=== PATIENT | female | born 1950 | race Caucasian/White ===

== ENCOUNTER → 2021-03-27 | Outpatient (CLI) | payer MEDICARE, MEDICAID | LOC: COL.RAD 13:24 | DX: G31.9 Degenerative disease of nervous system, unspecified (principal); E11.42 Type 2 diabetes mellitus with diabetic polyneuropathy; I67.82 Cerebral ischemia; R42 Dizziness and giddiness ==

== ENCOUNTER 2021-11-16 14:53 | Outpatient (RCR) | payer MEDICARE, MEDICAID ==
[~2021-11-16 14:53] MED LIST: ANTIVERT 25MG25 MG PO
== END 2021-11-24 | disposition still patient (30) ==
LOC: WSPT
DX: H81.10 Benign paroxysmal vertigo, unspecified ear (principal)

== ENCOUNTER 2021-12-21 14:15 | Outpatient (RCR) | payer MEDICARE, MEDICAID | END 2021-12-24 | disposition still patient (30) | LOC: WSPT | DX: H81.10 Benign paroxysmal vertigo, unspecified ear (principal) ==

== ENCOUNTER 2022-09-03 10:56 | Inpatient (IN) | payer MEDICARE, MEDICAID ==
[~2022-09-03 10:56] MED LIST changes: +*Hypoglycemia Clinic; +ASPI325T6 PO; +BENADRYL25 M2 PO; +COLACE 100100 MG/CAP PO; +LANTUS100 U/ML SQ; +LEVEMIR FLEX100 U/ML SQ; +LIPITOR 40MG TA40 MG PO; +LYRICA 75MG CAP75 MG PO; +MELATIN 3 MG-11 TAB PO; +MIRALAX PA17 GM/Dose PO; +NOVLOG SQ; +PROTONIX 40MG T40 MG PO; +ROXICODONE 55 MG/TAB PO; +SYNTHROID 0.10.15 MG PO; +TRULICITY4.5 MG/0.5 SQ; +TYLENOL 500MG500 MG PO; +ZESTRIL 20MG TA20 MG PO
[2022-09-03 12:00] VITALS: BP 104/41; PULSE 102; TEMP 99.5
--- NOTE | 2022-09-03 12:30 | NUR ---
PATIENT WAS ADMITED TO [facility] FOR WEAKNESS AND LETHARGIC. PATIENT HAD A TEMP OF 102.4 AND THEN DROP TO 101.8. HEART RATE HAS BEEN IN THE 100S BUT THE HIGHEST WAS 119. SINUS TACHY PER EKG. TELE WAS IN PLACE. PATIENT HAS A PIC LINE IN PLACE ON R AC. PATIENT WAS CLAMMY BUT VITALS HAS BEEN STABLE. UNABLE TO GET A UA AT THIS TIME. PATIENT ATE ABUOT 50% OF HER MEALS FOR LUNCH.
[2022-09-03 12:31] VITALS: BP 104/41; PULSE 102; TEMP 99.5
[2022-09-03 16:14] VITALS: BP 131/88
[2022-09-03 16:59] LABS: COLLECTION METHOD CLEAN CATCH
[2022-09-03 17:03] LABS: URINE APPEARANCE Clear (CLEAR/HAZY); URINE BLOOD Negative (NEGATIVE); URINE COLOR Yellow (YELLOW); URINE GLUCOSE 1+ (NEGATIVE); URINE KETONE TRACE (NEGATIVE); URINE NITRATE Negative (NEGATIVE); URINE PROTEIN(semi-quant) Negative (NEGATIVE); URINE UROBILINOGEN 0.2 E.U/dL (0.2-1.0)
[2022-09-03 17:05] LABS: MUCOUS Present (NOT PRESENT); SQUAMOUS EPITHELIAL None Seen /hpf (0-10); URINE BACTERIA None Seen /hpf (NONE SEEN); URINE RBC 0-2 /hpf (0-2)
--- NOTE | 2022-09-03 17:35 | NUR ---
UA AND BLOOD CULTURE WAS DONE ORDER. UA CAME BACK NORMAL EVEN THOUGH HER URINE WAS DARK YELLOW AND SLIGHTLY CONCENTRATED. . BLOOD CULTURE STILL PENDING. MAG WAS DONE AT 440PM.PATIENT ONLY HAVE FLUIDS RUNNING. PATIENT HAS BEEN IN AND OUT ALL DAY. ATE 50% AT DINNER TIME
--- NOTE | 2022-09-03 18:17 | NUR ---
SPOUSE WOULD LIKE TO BE CALL IF ANY THING HAPPEN AT NIGHT TIME. NUMBER TO REACH HIM IS [phone] (MARIAM)
[2022-09-03 20:24] VITALS: BP 104/45; PULSE 100; TEMP 98.2
[2022-09-03 23:25] VITALS: BP 111/52; PULSE 98; TEMP 97.6
--- NOTE | 2022-09-04 00:34 | NUR ---
Patient assessed around 2019. Patient alert, talking on phone. Denies having pain and discomfort. IV fluids running per orders. Voices no questions, needs, or concerns at time of assessment. Around 2119, patient having emesis, complaining of nausea. Call placed to DEMAR Beck. New order for Phenergan, and given per orders. Voices no further questions, needs, or concerns at this time. In bed with call light within reach.
[2022-09-04 04:20] VITALS: BP 135/54; PULSE 97; TEMP 98.5
--- NOTE | 2022-09-04 06:21 | NUR ---
Patient transferred to bedside commode with two assist with use of walker. Had bowel movement and able to urinate. Voices no questions, needs, or concerns at this time. In bed with call light within reach. Bed alarm on.
[2022-09-04 06:38] LABS: BASO % 0.5 % (0.0-2.0); EOS % 0.4 % (0.0-4.0); GRAN # 6.1 K/mm3 (1.4-6.5); GRAN % 76.6 % (42.2-75.2); LYMPH # 1.3 K/mm3 (1.2-3.4); LYMPH % 16.8 % (20.0-51.0); MEAN CELL VOLUME 84 fl (80.0-100.0); MEAN CORPUSCULAR HGB CONC 31 g/dl (33.0-37.0); MEAN PLATELET VOLUME 10.9 fl (7.4-10.4); MONO # 0.4 K/mm3 (0.1-0.6); MONO % 5.1 % (1.7-9.3); PLATELET COUNT 211 K/mm3 (130-400); REDCELL DISTRIBUTION WIDTH-CV 17.2 % (11.5-14.5)
[2022-09-04 06:42] LABS: HEMATOCRIT 30.9 % (37.0-47.0); HEMOGLOBIN 9.6 g/dl (12.5-16.0); MEAN CORPUSCULAR HEMOGLOBIN 26 pg (27-31)
[2022-09-04 06:54] LABS: CALCIUM 7.8 mg/dL (8.4-10.2); CREATININE, serum 1.27 mg/dL (0.57-1.11); MAGNESIUM 2.2 mg/dL (1.6-2.6); POTASSIUM 3.9 mmol/L (3.5-4.5)
--- NOTE | 2022-09-04 07:14 | NUR ---
BEDSIDE REPORT DONE ORDER. PATIENT RESTING IN BED.
[2022-09-04 07:28] VITALS: BP 116/44; PULSE 89; TEMP 99.3
--- NOTE | 2022-09-04 10:14 | NUR ---
ASSESSMENT DONE ORDER. PATIENT ALERT AND ORIENTED X 3 WITH SOME CONFUSION WHEN WAKING UP. PATIENT WEAK STANDING AND NEED 2 MAX ASSISTANCE. LUNG CLEAR BUT HAVE A SMALL COUGH. BOWEL SOUND ACTIVE. WITH A BOWEL MOVEMENT TODAY
[2022-09-04 11:58] VITALS: BP 105/47; PULSE 87; TEMP 98
--- NOTE | 2022-09-04 14:57 | NUR ---
SW met with patient to complete to complete intake. Patient states that she lives in [facility] with her Hector Norman [phone]. Patient provides that she utilizes an electric wheelchair, is independent with ADL's, and does not utilize HH at this time. PCP is Jerry, and pharmacy is [facility]. DPOA/HC is spouse. Awaiting PT recommomendation DC plan: Patient plans to return home
[2022-09-04 16:14] VITALS: BP 119/57; PULSE 82; TEMP 98.1
--- NOTE | 2022-09-04 16:39 | NUR ---
SW reviewed PT recommendation of IPR. SW called IPR staff Chaparrita to inform of PT recommendation for IPR. SW will continue to follow.
--- NOTE | 2022-09-04 18:12 | NUR ---
LOOSE STOOL X 3 NOTIFIED DOCTOR ACOSTA REGARDING IT. HE ORDER C-DIFF AND GI PANEL
--- NOTE | 2022-09-04 18:13 | NUR ---
PATIENT COMPLAIN ON PAIN ON STUMP AREA. SPOKE WITH DOCTOR YAMILET AND HE ORDER NORCO 5/325MG MG Q 8 HOUR PRN. SENT ORDER TO PHARMACY. ONCE I RECEIVED THE ORDER AND APPROVAL , I TOOK THE MEDICATION OUT AND PATIENT WAS SLEEPING. WAITING ANOTHER 20 MIN AND PATIENT STATED HER PAIN SUBSITED AND DOES NOT NEED IT RIGHT NOW. PATIENT STATED ONCE WE REPOSITION HER KAROLINE WRAP THE PAIN WENT AWAY. EXPLAIN THAT SHE HAS THE MEDICATION IF SHE NEED IT. PATIENT UNDERSTOOD.
--- NOTE | 2022-09-04 18:22 | NUR ---
PATIENT INFORM THAT HE FEEL SICK AFTER EATING HER FOOD. BASIN AT BEDSIDE. NO VOMIT AT THIS TIME. EXPLAIN ABOUT BRAT DIET FOR NOW AND TO EAT SLOW. EDUCATION TO DRINK WATER. PATIENT UNDERSTOOD.
[2022-09-04 20:30] VITALS: BP 130/56; PULSE 79; TEMP 98.1
[2022-09-04 22:14] LABS: CLOSTRIDIUM DIFF A/B NEG
[2022-09-04 23:12] VITALS: BP 125/59; PULSE 77; TEMP 98
--- NOTE | 2022-09-05 01:42 | NUR ---
Patient care, medication administration and nursing documentation occurred during a Daylight Savings Time Change.
[2022-09-05 03:37] VITALS: BP 125/61; PULSE 77; TEMP 97.8
--- NOTE | 2022-09-05 06:20 | NUR ---
OVERNIGHT PATIENTS VITAL SIGNS REMAINED WITHIN NORMAL LIMITS, PTS STOOL SAMPLE RESULT WAS POSITIVE FOR NOROVIRUS, PT WAS PLACED ON CONTACT PRECAUTIONS. PT WAS CLEANED OF INCONTINCE EPISODE X3 OF STOOL, PT VOIDED A SMALL AMOUNT ONCE OVERNIGHT. PT ASKED TO URINATE AT 0620 PT WAS ABLE TO URINATE 900 MEASURED AND THEN THE REST SPILLED
[2022-09-05 06:40] LABS: BASO % 0.4 % (0.0-2.0); EOS % 0.4 % (0.0-4.0); GRAN # 5.7 K/mm3 (1.4-6.5); GRAN % 74.1 % (42.2-75.2); HEMATOCRIT 28.1 % (37.0-47.0); HEMOGLOBIN 8.8 g/dl (12.5-16.0); LYMPH # 1.4 K/mm3 (1.2-3.4); LYMPH % 17.8 % (20.0-51.0); MEAN CELL VOLUME 82 fl (80.0-100.0); MEAN CORPUSCULAR HEMOGLOBIN 26 pg (27-31); MEAN CORPUSCULAR HGB CONC 31 g/dl (33.0-37.0); MEAN PLATELET VOLUME 10.2 fl (7.4-10.4); MONO # 0.5 K/mm3 (0.1-0.6); MONO % 6.9 % (1.7-9.3); PLATELET COUNT 189 K/mm3 (130-400); RED BLOOD COUNT 3.41 M/mm3 (4.10-5.30); REDCELL DISTRIBUTION WIDTH-CV 17.3 % (11.5-14.5)
[2022-09-05 07:03] LABS: CALCIUM 7.6 mg/dL (8.4-10.2); CREATININE, serum 0.77 mg/dL (0.57-1.11); POTASSIUM 3.6 mmol/L (3.5-4.5)
--- NOTE | 2022-09-05 07:15 | NUR ---
BEDSIDE REPORT DONE ORDER. PATINET RESTING IN BED.
[2022-09-05 07:16] VITALS: BP 129/65; PULSE 74; TEMP 97.8
--- NOTE | 2022-09-05 10:12 | NUR ---
ASSESSMENT DONE ORDER. PATINET ALERT AND ORIENTED TODAY. VERY HAPPY AND MOVING AROUND. STILL HAVING BOWELMOVEMENT X2 ALREADY ON MY SHIFT. URINATED ON HER OWN WITH THE HELP OF SIT TO STAND AND COMMOND. NO PAIN MEDICATION NEEDED. LUNG CLEAR, BOWEL SOUND ACTIVE WITH MUSHY,DIARRHEA BOWELS(BROWN)
[2022-09-05 11:47] VITALS: BP 128/55; PULSE 75; TEMP 97.9
--- NOTE | 2022-09-05 15:14 | NUR ---
PATIENT HAD ABOUT 5 LOOSE STOOL TODAY. THE LAST TWO HAS BEEN LESS THAN THE FIRST 3. EDUCATED PATIENT TO DRINK PLENTY OF WATER AND EAT WELL. EDUCATED ABOUT WASHING HANDS AND USING GLOVES. MARIAM UNDERSTOOD.
[2022-09-05 16:34] VITALS: BP 117/54; PULSE 88; TEMP 97.9
[2022-09-05 19:25] VITALS: BP 136/58; PULSE 78; TEMP 97.7
[2022-09-05 22:38] LABS: HEMATOCRIT 26.4 % (37.0-47.0); HEMOGLOBIN 8.5 g/dl (12.5-16.0)
[2022-09-05 23:41] VITALS: BP 136/51; PULSE 73; TEMP 98.1
[2022-09-06] VITALS (7 sets, daily range): BP systolic 133–173; BP diastolic 53–95; PULSE 69–93; TEMP 97.6–98.3
--- NOTE | 2022-09-06 07:01 | NUR ---
Shift rpeort received from retail shift leader RN. Pt awake and resting supine in bed reading on her phone. Rt. OLIVE dsg is CDI. IVF infusing to RUE PICC w/out difficulty. Per night RN, no blood return from PICC. Voice mail left for VS nurse. Pt denies pain/discomfort. Denies other needs. Call light is in her reach.
--- NOTE | 2022-09-06 08:20 | NUR ---
Pt ate approx 50% of her breakfast this morning independently. Accucheck was taken after she finished her breakfast. FSBS 98 - insulin was held. She continues to deny pain/discomfort. She remains on contact precautions for norovirus. No loose stools, n/v, or abd. pain. She denies additional needs. Call light is in her reach. Bed alarm is on.
--- NOTE | 2022-09-06 12:47 | NUR ---
Plastic Eye Technician spoke with Lissa, IPR Director who advised she is working on resubmitting for insurance authorization. Discharge Plan: Return to IPR
--- NOTE | 2022-09-06 17:19 | NUR ---
AIVS to see pt this afternoon to assess RUE PICC line. Unable to obtain blood return. XR revealed that PICC is in correct place. Recevied order for Cath-flow - 2ml administered in each lumen at 1635. Upon recheck 30 min later, still unable to obtain blood return. Will reassess in 30 minutes.
--- NOTE | 2022-09-06 19:00 | NUR ---
supervisor insecticide came to assist with PICC line at approx 1800. Darren was able to obtain blood return from red and purple ports. Both ports flushed with 20mL flush. Lab on unit for lab draw. Nurse only able to obtain approx 3 mL blood from purple port and unable to obtain blood from red port. Both ports flush w/out difficulty. Attempted x 2 to call hospitalist for further advice.
--- NOTE | 2022-09-06 19:11 | NUR ---
Hospitalist KATHIA notified. Okay to reorder cath-flow and repeat dose. Awaiting delivery from pharmacy.
--- NOTE | 2022-09-06 20:31 | NUR ---
Patient assessed at this time, head to toe assessment done, see shift assessment, clarified with Adriana the Pa regarding the cathflow and said give the 2mg each lumen, double checked it as well with the house painter, after 30minutes of giving it both lumens have good blood return, with stump dressing to right knee, denies pain or discomfort, denies further need at this time, call light and personal items within reach, will continue to monitor.
[2022-09-07 03:37] VITALS: BP 145/62; PULSE 70; TEMP 97.7
--- NOTE | 2022-09-07 06:23 | NUR ---
Patient had an uneventful night, denies further needs, will report off to dayshift nurse.
[2022-09-07 06:43] LABS: MEAN CELL VOLUME 83 fl (80.0-100.0); MEAN CORPUSCULAR HGB CONC 31 g/dl (33.0-37.0); MEAN PLATELET VOLUME 10.7 fl (7.4-10.4); PLATELET COUNT 237 K/mm3 (130-400); RED BLOOD COUNT 3.15 M/mm3 (4.10-5.30); REDCELL DISTRIBUTION WIDTH-CV 17.3 % (11.5-14.5)
[2022-09-07 06:45] LABS: HEMOGLOBIN 8.1 g/dl (12.5-16.0); MEAN CORPUSCULAR HEMOGLOBIN 26 pg (27-31)
--- NOTE | 2022-09-07 07:01 | NUR ---
Shift report received from night warehouse manager RN. Pt awake and lying supine in bed watching tv. She denies pain/discomfort. Purewick is on - linens clean/dry. Rt. BKA dressing is CDI. Other needs denied. Call light in her reach. Bed alarm is on.
[2022-09-07 07:10] LABS: CALCIUM 7.7 mg/dL (8.4-10.2); CREATININE, serum 0.73 mg/dL (0.57-1.11); MAGNESIUM 1.5 mg/dL (1.6-2.6); POTASSIUM 3.2 mmol/L (3.5-4.5)
[2022-09-07 07:16] VITALS: BP 174/73; PULSE 77; TEMP 97.6
--- NOTE | 2022-09-07 07:23 | NUR ---
FSBS 73 mg/dL. Pt is not symptomatic of hypoglycemia at this time. 4 oz orange juice given along with Glucerna. Breakfast ordered. Will continue to monitor.
--- NOTE | 2022-09-07 08:38 | NUR ---
FSBS was rechecked and noted to be 83 mg/dL. Pt is waiting for her breakfast to be delivered. AM scheduled insulin held. RUE PICC line flushing well in both ports with noted blood return from both ports. Pt denies pain/discomfort. Denies other needs. Call light in her reach. Bed alarm is on.
[2022-09-07] MEDS ORDERED: ASPI325T6 PO (09:19)
[2022-09-07] MEDS ORDERED: MIRALAX PA17 GM/Dose PO (09:20)
[2022-09-07] MEDS ORDERED: COLACE 100100 MG/CAP PO (09:20)
[2022-09-07] MEDS ORDERED: TYLENOL 500MG500 MG PO (09:20)
[2022-09-07] MEDS ORDERED: LEVEMIR FLEX100 U/ML SQ (09:25)
[2022-09-07] MEDS ORDERED: NOVOLOG FLEX100 U/ML SQ ×2 (09:26)
[2022-09-07 11:20] VITALS: BP 147/63; PULSE 71; TEMP 97.7
--- NOTE | 2022-09-07 12:16 | NUR ---
2nd dose of PO potassium given. Report given to MERNA Alarcon.
--- NOTE | 2022-09-07 12:17 | NUR ---
TAKING OVER PT CARE AT THIS TIME. REPORT FROM TAY BAUMAN.
--- NOTE | 2022-09-07 15:14 | NUR ---
Transport Nurse contacted Patient on Patient phone to discuss discharge planning from [facility] Surgical Unit. Patient is pending insurance auth in order to return to IPR once discharged. Patient reported that she endorses that plan and intends to return to IPR when authorized. Patient had no concerns for SW at this time.
[2022-09-07 16:00] VITALS: BP 180/74; PULSE 79; TEMP 97.6
[2022-09-07 20:11] VITALS: BP 166/79; PULSE 80; TEMP 97.6
[2022-09-07 23:46] VITALS: BP 156/76; PULSE 71; TEMP 97.9
[2022-09-08 03:52] VITALS: BP 189/81; PULSE 77; TEMP 98.4
--- NOTE | 2022-09-08 06:14 | NUR ---
pt's BP elevated this am @ 0400, 189/81, per doctor's note, lisinopril on hold until discharge, which should be today.
[2022-09-08 07:18] VITALS: BP 153/73; PULSE 76; TEMP 97.7
--- NOTE | 2022-09-08 11:23 | NUR ---
Patient sitting up in chair. Family at bedside. Flight Test Supervisor has assisted her to bedside commode. She remains on contact isolation. AM insulin held due to sugar being only 75. Tylenol prn for pain. right lower extremity dressing intact. Picc rue. Will monitor
[2022-09-08 11:31] VITALS: BP 163/68; PULSE 78; TEMP 97.7
--- NOTE | 2022-09-08 13:50 | NUR ---
Patient continue to sit up in chair without needs at this time
--- NOTE | 2022-09-08 15:18 | NUR ---
MAUREEN GUADALUPE TO RESUME PATIENT CARES. REPORT GIVEN
[2022-09-08 15:35] VITALS: BP 152/62; PULSE 79; TEMP 97.7
--- NOTE | 2022-09-08 18:19 | NUR ---
Patient sitting up in bed watching TV, just finished eating dinner. A&Ox4. VSS. IV CDI. Incision CDI. Denies pain and discomfort. Contact precautions in place. No further needs expressed. Call light within reach
[2022-09-08 20:12] VITALS: BP 144/66; PULSE 73; TEMP 97.9
[2022-09-08 23:17] VITALS: BP 140/65; PULSE 69; TEMP 97.9
[2022-09-09 03:45] VITALS: BP 147/63; PULSE 73; TEMP 98.7
[2022-09-09 04:10] VITALS: BP 182/85; PULSE 73; TEMP 98.3
[2022-09-09 04:56] VITALS: BP 175/78
[2022-09-09 07:41] VITALS: BP 159/62; PULSE 77; TEMP 98.6
== END 2022-09-09 10:36 | DRG 565 ==
LOC: SURG 10:56
PROVIDERS: Physician Assistant; ADMIT Student in an Organized Health Care Education/Training Program
DX: T87.89 Other complications of amputation stump (principal); E87.1 Hypo-osmolality and hyponatremia; R65.10 Systemic inflammatory response syndrome (SIRS) of non-infectious origin without acute organ dysfunction; M86.9 Osteomyelitis, unspecified; N17.9 Acute kidney failure, unspecified; I10 Essential (primary) hypertension; K52.89 Other specified noninfective gastroenteritis and colitis; E11.42 Type 2 diabetes mellitus with diabetic polyneuropathy; E11.65 Type 2 diabetes mellitus with hyperglycemia; E11.69 Type 2 diabetes mellitus with other specified complication; E03.9 Hypothyroidism, unspecified; E87.5 Hyperkalemia; E83.42 Hypomagnesemia; K21.9 Gastro-esophageal reflux disease without esophagitis; K59.00 Constipation, unspecified; G47.00 Insomnia, unspecified; Z79.4 Long term (current) use of insulin; Z89.422 Acquired absence of other left toe(s); Z90.710 Acquired absence of both cervix and uterus; Z88.2 Allergy status to sulfonamides; Z88.1 Allergy status to other antibiotic agents
CPT/HCPCS: J0360; J0692; J1815; J2550; J2997; J3475; J7030; J7120

== ENCOUNTER 2022-09-08 15:48 | Inpatient (IN) | payer MEDICARE, MEDICAID ==
[~2022-09-08] VITALS: Ht 175.3 cm; Wt 103.5 kg
[~2022-09-08 15:48] MED LIST changes: +NOVOLOG FLEX100 U/ML SQ
--- NOTE | 2022-09-09 14:42 | NUR ---
Has lack of transportation kept you from medical appts, meetings, work, or from getting things needed for daily living? NO How often do you feel lonely or isolated from those around you? OFTEN Over the past 5 days, how much of the time has pain made it hard for you to sleep? FREQUENTLY Over the past 5 days, how often have you limited your participation in therapy due to pain? FREQUENTLY Over the past 5 days, how often have you limited your day-to-day activities because of pain? FREQUENTLY Have you had 2 or more falls in the past year or any fall with an injury? YES Did you have major surgery during the 100 days prior to admission? YES
[2022-09-09 17:22] VITALS: BP 138/61; PULSE 80; TEMP 98.7
--- NOTE | 2022-09-09 20:45 | NUR ---
PT SITTING ON SIDE OF BED. A&OX4. PLEASANT AND COOPERTIVE. RT PICC LINE FLUSHES WELL. C/O RT HIP PAIN. LEVEL 8. SEE MAR FOR NORCO GIVEN. ACCUCHECK 224- SEE MAR FOR SSI GIVEN. PT DENIES ANY LOOSE STOOLS TODAY. CONTINUES IN ISOLATION FOR NOROVIRUS. CALL LIGHT IN REACH. BED ALARM SET.
[2022-09-10 06:22] VITALS: BP 168/70; PULSE 76; TEMP 97.6
--- NOTE | 2022-09-10 07:29 | NUR ---
Pt Ox4, up to BSC with 1A and walker. Denies pain.
--- NOTE | 2022-09-10 11:40 | NUR ---
Rec'd notification from [facility] that per ID guidelines, contact precautions may be d/c. Pt has had no loose or liquid stool x 24 hours.
--- NOTE | 2022-09-10 14:33 | NUR ---
Contact Lens Lathe Operator met with patient to complete initial intake as she is a new admit to [facility]. Patient had been on IPR but returned to acute due to an infection. Patient lives in [place] with her spouse, Hector (ph#[phone]) [address] Dr[address] Rider for primary care. Patient advised she has a cane, rollator, and standard wheelchair at home. Patient also has a motorized chair and stated that it's "Hector's vehicle". Patient stated she will need a front wheeled walker prior to discharge. Patient does not have Advance Directives but may be interested in completing DPOA-HC during her stay. SW will continue to follow for discharge needs.
[2022-09-10 17:19] VITALS: BP 131/50; PULSE 80; TEMP 98
--- NOTE | 2022-09-10 17:37 | NUR ---
Shift summary 629-present: VSS, afebrile, Ox4. No loose stools x >24hrs, Contact Isolation d/c. Small hard stool this shift. Pt reports pain early this AM, requests pain rx x 1. Reports pain to coccyx. Noted to have red, blanchable area at top of sacral split. Apply barrier cream, instruct pt to lay side to side to avoid further pressure/irritation to coccyx. Pt eating well, 1850ml urine output. Able to stand with 1A, xfer to WC or BSC with min assist once standing. Dual lumen PICC to OTTO remains, both lumen flush easily with blood return.
--- NOTE | 2022-09-10 21:28 | NUR ---
pt resting in bed talking to on phone. meds given and assessment complete. BS 164. pt denies pain. RLE dressing cdi. purewick in place. PICC to OTTO flushes well w good blood return. pt denies needs at this time. call light in reach.
[2022-09-11 05:08] VITALS: BP 164/73; PULSE 87; TEMP 97.8
--- NOTE | 2022-09-11 06:53 | NUR ---
Shift report received from night RN. Pt awake and sitting supine in bed. Pt assisted with repositioning to perform oral hygiene independently. Pt denies pain. Viridiana SCHAEFER dsg is CDI. She denies other needs. Call light is in her reach. Bed alarm is on.
--- NOTE | 2022-09-11 09:36 | NUR ---
SBA provided as pt stood up and transferred to the wheelchair using a FWW. Denies pain at this time as PRN Tylenol was given with her a.m. medications. Pt escorted off the unit via w/c to Group Therapy.
--- NOTE | 2022-09-11 15:50 | NUR ---
Pt resting supine in bed. HOB elevated to approx 30 degrees. Pt reporting bilateral hand pain and is requesting Voltaren gel. Voltaren applied per PRN order. She denies additional needs. Call light is in her reach. Bed alarm is on.
[2022-09-11 17:23] VITALS: BP 125/49; PULSE 78; TEMP 97.7
--- NOTE | 2022-09-11 19:37 | NUR ---
PT CHEERFUL ANED COOPERATIVE. PT REPORTS RT BKA PAIN LEVEL 5. SEE MAR FOR NORCO GIVEN. PT ABLE TO SIT UP TO SIDE OF BED PER SELF. MOD 1 ASSIST TO BSC. NEEDED ASSIST WITH CLOTHING. ABLE TO PERFORM OWN PERICARE. VOIDED LG CLEAR YELLOW AMT. BACK TO BED. PT ABLE TO LIGT LEGS INTO BED. CALL LIGHT IN REACH. BED ALARM SET.
[2022-09-12 06:06] VITALS: BP 154/62; PULSE 74; TEMP 97.5
--- NOTE | 2022-09-12 07:00 | NUR ---
Shift report received from material handler 1st shift RN.
--- NOTE | 2022-09-12 12:09 | NUR ---
Dental Appliance Mechanic rounds: Patient's door was open. Dental Appliance Mechanic greeted Patient. Patient is expecting two persons from her restorationist to visit this afternoon. Patient is happy with the move to [facility] and is looking forward to healing and going home soon. Patient declined the vinyl hanger visit, but was very comfortable speaking with Dental Appliance Mechanic while Dental Appliance Mechanic remained in the doorway.
[2022-09-12 15:01] LABS: C-REACTIVE PROTEIN 2.21 mg/dL (0.00-0.50); URIC ACID 5.8 mg/dL (2.6-6.0)
[2022-09-12 16:48] VITALS: BP 128/62; PULSE 79; TEMP 97.6
--- NOTE | 2022-09-12 17:07 | NUR ---
Pt has had no complaints of pain this shift so far. Last dose of pain medication was given during the noc shift. Pt has swelling noted to her to right hand. She reports the swelling happens occasionally when her arthritis flares. Pt agreeable to keeping her hand elevated on a pillow throughout the day. Hospitalist aware and labs were ordered. Pt reported itching under RUE PICC line dressing. Order was received for PRN PO Benadryl. Charge nurse and Competitive Intelligence Manager aware of order to dc PICC. Pt is currently sitting up in bed eating her dinner independently. Denies any additional needs at this time. Call light is in her reach. Bed alarm is on.
--- NOTE | 2022-09-12 18:22 | NUR ---
SARAH PICC removed per order by Charge Nurse at approx 1730. Pressure dressing applied w/ tegaderm. Dressing was CDI after 15 minutes post removal and remains CDI an hour later. Reinforced PICC post removal teaching w/ the pt who verbalized understanding. She denies pain/tenderness to site. Will continue to monitor.
--- NOTE | 2022-09-12 20:30 | NUR ---
PT RESTING IN BED. A&O. ACCUCHECK 220. SEE MAR FOR SSI. HAVING PAIN IN HANDS AND LOW BACK. SEE MAR FOR PAIN MED GIVEN. SEE SHIFT ASSESSMENT REGARDING SKIN INTEGRITY. ENC PT TO REPOSITION FREQUENTLY AND STAY OFF COCCYX. CALL LIGHT IN REACH. BED ALARM SET.
[2022-09-13 05:40] VITALS: BP 155/77; PULSE 83; TEMP 97.6
--- NOTE | 2022-09-13 13:24 | NUR ---
Admission QIM scores were reviewed by the team. Code of 1 chosen for toilet hygiene was determined by team discussion to be the most usual performance before interventions for this patient during the assessment period. Code of 1 chosen for toilet transfer was determined by team discussion to be the most usual performance before interventions for this patient during the assessment period. Code of 4 chosen for putting on/taking off footwear was determined by team discussion to be the most usual performance before interventions for this patient during the assessment period. Code of 6 chosen for sit to lying was determined by team discussion to be the most usual performance before interventions for this patient during the assessment period. Code of 3 chosen for chair/bed to chair transfer was determined by team discussion to be the most usual performance before interventions for this patient during the assessment period.--Lissa Butts,
--- NOTE | 2022-09-13 14:45 | NUR ---
Pt inquiring about next dressing change and when sutures would be removed. Pt reports that she has been reapplying walt wrap r/t it coming off with use of stump while repositioning in bed. Contact Dr. Lees, who instructs to leave kerlix guaze wrap in place and rewrap walt to stump. Provider will notify ortho that pt is still on IPR, see if they want to f/u while she is here. Kerlix remains intact upon removal of walt. Dressing CDI, no shadowing noted. Reapply walt bandage.
--- NOTE | 2022-09-13 17:41 | NUR ---
Shift summary 0630-present: Pt A&Ox4, VSS, arthritic pain to hands. Voltarten gel applied, relief acheived. at bedside majority of day. Request him to bring POM Trulicity in upon return tomorrow. Dinner fsbs 282, pt treated with scheduled and SSI.
[2022-09-13 17:53] VITALS: BP 164/70; PULSE 64; TEMP 98.1
--- NOTE | 2022-09-14 05:07 | NUR ---
pt up to restroom using w/c and sba, requested tylenol @ HS for discomfort. SSI required for bgm of 209 last pm.
[2022-09-14 05:15] VITALS: BP 155/62; PULSE 77; TEMP 97.8
--- NOTE | 2022-09-14 06:52 | NUR ---
Shift report received from it operations manager RN.
--- NOTE | 2022-09-14 08:47 | NUR ---
Pt's brought in [facility]. Pharmacy notified.
--- NOTE | 2022-09-14 09:00 | NUR ---
Dr. Walters's ([facility]) nurse notified that pt will probably be on the unit Tuesday.
--- NOTE | 2022-09-14 10:15 | NUR ---
Pt is off the unit for Group Therapy.
[2022-09-14 17:38] VITALS: BP 147/67; PULSE 82; TEMP 97.5
--- NOTE | 2022-09-14 20:30 | NUR ---
pt resting in bed. meds given and assessment complete. right leg incision is cdi. pt reports some swelling in her hands but is tolerable at the moment. fall precautions in place. pt denies needs at this time. call light in reach.
[2022-09-15 05:10] VITALS: BP 140/56; PULSE 92; TEMP 98.6
--- NOTE | 2022-09-15 06:56 | NUR ---
BEDSIDE REPORT DONE ORDER WITH NIGHT NURSE KEERTHI
--- NOTE | 2022-09-15 10:33 | NUR ---
ASSESSMENT DONE ORDER. PATIENT ALERT AND ORIENTED X 4 ABLE TO MAKE NEEDS KNOWN.PATIENT IS MOD 1 IN ROOM NOW WITH WALKER ONLY. GOING HOME TOMORROW TUESDAY. PATIEN ABLE TO GET UP AND PIVOT TO WHEELCHAIR OR COMMODE WITH SBA ONLY
--- NOTE | 2022-09-15 16:23 | NUR ---
Aircraft Launch And Recovery Technician met with patient to review and provide copy of team conference notes. Patient to discharge tomorrow and she is agreeable to this. The therapy team recommends Home Health services so TOMASA provided Medicare.gov list of HH agencies. Patient does not want [facility]. Patient selected [facility]. TOMASA contacted Mariah at [facility] and faxed referral. TOMASA also reviewed IM form with patient who verbalized understanding and provided signature. TOMASA placed form in chart and provided copy to patient. Patient wanted to complete DPOA-HC, so TOMASA assisted patient with form, then along with TOMASA Wright, provided witness signature. Original and copies were provided to patient. TOMASA also put copy in chart. Patient needs FWW and is agreeable to have it ordered through [facility]. TOMASA faxed referral and order to [facility]. Mariah at [facility] declined HH referral as they cannot take patient's insurance. TOMASA faxed referral to [facility].
[2022-09-15 17:41] VITALS: BP 135/52; PULSE 87; TEMP 98.4
--- NOTE | 2022-09-15 20:45 | NUR ---
PT GOT SELF IN BED FROM W/C. MOD I W/ W/C TRANSFERS. PAIN UNDER CONTROL AT THIS TIME. NO NEEDS. CALL LIGHT IN REACH.
[2022-09-16 05:28] VITALS: BP 154/66; PULSE 78; TEMP 97.8
--- NOTE | 2022-09-16 06:39 | NUR ---
BEDSIDE REPORT DONE ORDER WITH NIGHT NURSE LEVON
[2022-09-16] MEDS ORDERED: ASPI325T6 PO (09:18)
[2022-09-16] MEDS ORDERED: ZESTRIL 20MG TA20 MG PO (09:18)
[2022-09-16] MEDS ORDERED: VOLTAREN GEL 1%1 TU TP (09:18)
[2022-09-16] MEDS ORDERED: LANTUS SOLOS100 U/ML SQ (09:23)
[2022-09-16] MEDS ORDERED: NOVOLOG FLEX100 U/ML SQ (09:24)
--- NOTE | 2022-09-16 10:00 | NUR ---
ASSESSMENT DONE ORDER. PATIENT ALERT AND ORIENT X 4. GOING HOME TODAY. PATIENT MOD 1 IN ROOM WITH WC ONLY. NO PAIN NOTED
--- NOTE | 2022-09-16 13:44 | NUR ---
Multimedia Manager contacted Spencer at [facility] and faxed discharge orders. SW also confirmed patient's walker was delivered. Transport was scheduled for ride home and included spouse, Hector. Trip #[id number].
--- NOTE | 2022-09-16 15:37 | NUR ---
Discharge QIM scores were reviewed by the team. Code of 6 chosen for toilet hygiene was determined by team discussion to be the most usual performance for this patient during the discharge assessment period. Code of 6 chosen for toilet transfer was determined by team discussion to be the most usual performance for this patient during the discharge assessment period. Code of 6 chosen for sit to stand was determined by team discussion to be the most usual performance for this patient during the discharge assessment period. Code of 6 chosen for chair/bed to chair transfer was determined by team discussion to be the most usual performance for this patient during the discharge assessment period. Code of 4 chosen for walk 10 feet was determined by team discussion to be the most usual performance for this patient during the discharge assessment period.--Lissa Butts, PD
--- NOTE | 2022-09-16 17:12 | NUR ---
PATIENT WAS DISCHARGE AROUND 413PM. UBER PICK PATIENT UP AND WILL TAKE PATIENT HOME. EDUCATED ABOUT APPOITNENT AND MEDICATION. PATIENT AND HAD NO CONCERN OR QUESTION AT THIS TIME.
--- NOTE | 2022-09-17 11:30 | NUR ---
Has lack of transportation kept you from medical appts, meetings, work, or from getting things needed for daily living? YES--MEDICAL How often do you feel lonely or isolated from those around you? NEVER Over the past 5 days, how much of the time has pain made it hard for you to sleep? FREQUENTLY Over the past 5 days, how often have you limited your participation in therapy due to pain? RARELY/NOT AT ALL Over the past 5 days, how often have you limited your day-to-day activities because of pain? RARELY/NOT AT ALL
== END 2022-09-16 16:13 | disposition home health service (06) | DRG 560 ==
PROVIDERS: Internal Medicine; ADMIT Physical Medicine & Rehabilitation Sports Medicine
DX: Z47.81 Encounter for orthopedic aftercare following surgical amputation (principal); A08.11 Acute gastroenteropathy due to Norwalk agent; R26.89 Other abnormalities of gait and mobility; E83.42 Hypomagnesemia; E11.42 Type 2 diabetes mellitus with diabetic polyneuropathy; E03.9 Hypothyroidism, unspecified; M19.042 Primary osteoarthritis, left hand; M19.041 Primary osteoarthritis, right hand; K21.9 Gastro-esophageal reflux disease without esophagitis; G47.00 Insomnia, unspecified; K59.00 Constipation, unspecified; I10 Essential (primary) hypertension; J30.2 Other seasonal allergic rhinitis; R53.81 Other malaise; Z89.511 Acquired absence of right leg below knee; Z89.422 Acquired absence of other left toe(s); Z79.899 Other long term (current) drug therapy; Z79.82 Long term (current) use of aspirin; Z79.4 Long term (current) use of insulin; Z73.6 Limitation of activities due to disability; Z88.2 Allergy status to sulfonamides
CPT/HCPCS: J1815

== ENCOUNTER 2023-03-25 12:45 | Outpatient (RCR) | payer MEDICARE ==
[~2023-03-25 12:45] MED LIST changes: +LANTUS SOLOS100 U/ML SQ; +VOLTAREN GEL 1%1 TU TP
== END 2023-03-26 | disposition home or self-care (01) ==
LOC: WSPT
DX: M62.81 Muscle weakness (generalized) (principal); Z89.511 Acquired absence of right leg below knee

== ENCOUNTER → 2023-11-25 | Outpatient (RCR) | payer MEDICARE | LOC: WSPT | DX: M54.50 Low back pain, unspecified (principal); Z89.511 Acquired absence of right leg below knee ==